=== PATIENT | female | born 1955 | race Caucasian/White ===

== ENCOUNTER → 2016-12-30 | Outpatient (CLI) | payer OTHER ==
[~2016-12-30] MED LIST: AMLO10TA PO; AMLO5TAB2 PO; CALC-196 PO; Docusate Sod/Senna PO; ESTR62CR PV; IRON27TA PO; LEVO75TA4 PO; LISI10TA4 PO; LOVA20TA2 PO; PEG1POW PO; PERCOCET PO; PRIL40CA PO; VITA100T56 PO; VITA50003 PO; VITMTA PO; WARF-18 PO
--- NOTE | 2016-12-30 14:47 | REPMRS ---
Patient History The patient states she has not had a clinical breast exam in over a year. Patient is postmenopausal and is nulliparous. Family history of ovarian cancer in 2 sisters under age 50, unknown cancer in mother at age 51, and unknown cancer in brother at age 60. Benign excisional biopsy of the left breast. Took hormonal contraceptives for 4 years. Taking estrogen for 30 years. Digital Woman Screen Mammo: December 30, 2016 - Exam #: [id number] Bilateral CC and MLO view(s) were taken. Technologist: Kimberlee Donaldson Technologist Prior study comparison: April 27, 2015, digital bilateral screening mammo, performed at [facility]. March 31, 2014, bilateral bilat screen digital mammo, performed at [facility] ([facility]). May 05, 2012, bilateral bilat screen digital mammo, performed at [facility] ([facility]). FINDINGS: There are scattered fibroglandular densities. There has been no change in the appearance of the mammogram from the prior studies. There is a mild amount of scattered fibroglandular density which is fairly symmetric. There is no interval development of dominant mass, architectural distortion, or clustered microcalcification suggestive of malignancy. ASSESSMENT: BI-RADS/ACR category 1 mammogram. Negative. Recommendation Routine screening mammogram in 1 year (for women over age 40). This mammogram was interpreted with the aid of an FDA-approved computer-aided dectection system. Electronically Signed By: Osmani Thorpe MD 12/30/16 [id number]
== END ==
LOC: M WHC 13:21
PROVIDERS: ATTEND Nurse Practitioner Adult Health
DX: Z12.31 Encounter for screening mammogram for malignant neoplasm of breast (principal)

== ENCOUNTER → 2017-05-15 | Outpatient (REF) | payer OTHER ==
[~2017-05-15] MED LIST changes: -IRON27TA PO; +IRON27TA2 PO; +VITA1CAP40 PO; -VITA50003 PO
[2017-05-15 20:24] LABS: BASO % 0.3 % (0.0-1.0); EOS # 0.1 10^3/uL (0.0-0.50); IMMATURE GRANULOCYTE % 0.2 % (0-0); LYMPH # 1.5 10^3/uL (1.5-4.5); LYMPH % 25.4 % (24.0-44.0); MEAN CORPUSCULAR HEMOGLOBIN 24.8 pg (27.0-33.0); MEAN CORPUSCULAR HGB CONC 31.1 g/dl (32.0-36.5); MONO # 0.6 10^3/uL (0.0-0.8); MONO % 9.9 % (0.0-5.0); NEUTROPHILS # 3.7 10^3/uL (1.8-7.7); NEUTROPHILS % 62.2 % (36.0-66.0); PLATELET COUNT, AUTOMATED 201 10^3/uL (150-450); RED CELL DISTRIBUTION WIDTH 15.4 % (11.5-14.5)
[2017-05-15 20:26] LABS: ADD MORPHOLOGY? NO
[2017-05-15 21:03] LABS: ALBUMIN 3.5 GM/DL (3.2-5.2); ALKALINE PHOSPHATASE 141 U/L (45-117); ALT/SGPT 39 U/L (12-78); AMYLASE 38 U/L (25-115); ANION GAP 5 MEQ/L (8-16); AST/SGOT 24 U/L (15-37); BILIRUBIN,TOTAL 0.5 MG/DL (0.2-1.0); BLOOD UREA NITROGEN 13 MG/DL (7-18); CALCIUM LEVEL 8.3 MG/DL (8.8-10.2); CARBON DIOXIDE LEVEL 29 MEQ/L (21-32); CHLORIDE LEVEL 107 MEQ/L (98-107); CREATININE FOR GFR 0.85 MG/DL (0.55-1.02); GLOMERULAR FILTRATION RATE > 60.0 (>45); GLUCOSE, FASTING 87 MG/DL (80-110); POTASSIUM SERUM 3.9 MEQ/L (3.5-5.1); SODIUM LEVEL 141 MEQ/L (136-145)
== END ==
LOC: M LAB REF 16:20
PROVIDERS: ATTEND Nurse Practitioner Adult Health
DX: R10.13 Epigastric pain (principal); R11.0 Nausea

== ENCOUNTER → 2017-07-20 | Outpatient (REF) | payer OTHER | LOC: M LAB REF 11:43 | PROVIDERS: ATTEND Nurse Practitioner Adult Health | DX: R10.84 Generalized abdominal pain (principal); R19.7 Diarrhea, unspecified ==

== ENCOUNTER → 2017-09-29 | Outpatient (REF) | payer OTHER | LOC: M SFHCLERA 14:49 | DX: J02.9 Acute pharyngitis, unspecified (principal); Z20.828 Contact with and (suspected) exposure to other viral communicable diseases ==

== ENCOUNTER → 2017-10-05 | Outpatient (CLI) | payer OTHER | LOC: M LRY 16:09 | DX: R05 Cough (principal) | CPT/HCPCS: 71046 ==

== ENCOUNTER → 2017-12-13 | Outpatient (REF) | payer OTHER | LOC: M SFHCLERA 19:00 | DX: J02.9 Acute pharyngitis, unspecified (principal) ==

== ENCOUNTER → 2017-12-30 | Outpatient (CLI) | payer OTHER | LOC: M WUC 12:17 | DX: R06.02 Shortness of breath (principal) ==

== ENCOUNTER → 2018-01-06 | Outpatient (CLI) | payer OTHER ==
[~2018-01-06] MED LIST changes: -AMLO10TA PO; -AMLO5TAB2 PO; -CALC-196 PO; -Docusate Sod/Senna PO; -ESTR62CR PV; -IRON27TA2 PO; -LEVO75TA4 PO; -LISI10TA4 PO; -LOVA20TA2 PO; +METHACHOLINE KIT (J7674) INH; -PEG1POW PO; -PERCOCET PO; -PRIL40CA PO; -VITA100T56 PO; -VITA1CAP40 PO; -VITMTA PO; -WARF-18 PO
== END ==
LOC: M CARPUL 12:41
DX: R05 Cough (principal)
CPT/HCPCS: J7674

== ENCOUNTER → 2018-01-12 | Outpatient (REF) | payer OTHER | LOC: M LAB REF 12:07 | DX: J02.9 Acute pharyngitis, unspecified (principal) | CPT/HCPCS: 87070 ==

== ENCOUNTER → 2018-02-02 | Outpatient (REF) | payer OTHER | LOC: M SFHCLERA 15:08 | DX: J02.9 Acute pharyngitis, unspecified (principal) ==

== ENCOUNTER → 2018-03-26 | Outpatient (CLI) | payer OTHER | LOC: M LRY 12:50 | DX: M79.671 Pain in right foot (principal); M19.071 Primary osteoarthritis, right ankle and foot | CPT/HCPCS: 73630 ==

== ENCOUNTER → 2018-03-26 | Outpatient (REF) | payer OTHER ==
[2018-03-26 16:38] LABS: BASO % 0.6 % (0.0-1.0); EOS # 0.1 10^3/uL (0.0-0.50); EOS % 1.8 % (0.0-3.0); HEMATOCRIT 37.6 % (36.0-47.0); HEMOGLOBIN 11.9 g/dl (12.0-15.5); IMMATURE GRANULOCYTE % 0.5 % (0-3.0); LYMPH # 1.5 10^3/uL (1.5-4.5); LYMPH % 22.2 % (24.0-44.0); MEAN CORPUSCULAR HEMOGLOBIN 25.5 pg (27.0-33.0); MEAN CORPUSCULAR HGB CONC 31.6 g/dl (32.0-36.5); MEAN CORPUSCULAR VOLUME 80.5 fl (80.0-96.0); MONO # 0.6 10^3/uL (0.0-0.8); MONO % 9.1 % (0.0-5.0); NEUTROPHILS # 4.3 10^3/uL (1.8-7.7); NEUTROPHILS % 65.8 % (36.0-66.0); PLATELET COUNT, AUTOMATED 208 10^3/uL (150-450); RED BLOOD COUNT 4.67 10^6/uL (4.00-5.40); RED CELL DISTRIBUTION WIDTH 15.4 % (11.5-14.5); WHITE BLOOD COUNT 6.6 10^3/uL (4.0-10.0)
[2018-03-26 17:01] LABS: ALBUMIN 3.4 GM/DL (3.2-5.2); ALBUMIN/GLOBULIN RATIO 0.87 (1.00-1.93); ALKALINE PHOSPHATASE 134 U/L (45-117); ALT/SGPT 27 U/L (12-78); ANION GAP 9 MEQ/L (8-16); AST/SGOT 18 U/L (7-37); BILIRUBIN,TOTAL 0.5 MG/DL (0.2-1.0); BLOOD UREA NITROGEN 19 MG/DL (7-18); CALCIUM LEVEL 8.5 MG/DL (8.8-10.2); CARBON DIOXIDE LEVEL 27 MEQ/L (21-32); CHLORIDE LEVEL 107 MEQ/L (98-107); CREATININE FOR GFR 0.92 MG/DL (0.55-1.30); GLOMERULAR FILTRATION RATE > 60.0 (>45); GLUCOSE, FASTING 78 MG/DL (70-100); POTASSIUM SERUM 3.9 MEQ/L (3.5-5.1); SODIUM LEVEL 143 MEQ/L (136-145); TOTAL PROTEIN 7.3 GM/DL (6.4-8.2); URIC ACID 5.6 MG/DL (2.6-6.0)
[2018-03-26 17:28] LABS: ERYTHROCYTE SEDIMENTATION RATE 52 mm/hr (0-30)
== END ==
LOC: M SFHCLERA 12:49
DX: M79.671 Pain in right foot (principal)
CPT/HCPCS: 84550

== ENCOUNTER → 2018-04-08 | Outpatient (REF) | payer OTHER | LOC: M LAB REF 16:30 | DX: R30.0 Dysuria (principal) ==

== ENCOUNTER 2018-05-27 14:41 | Emergency (ER) | payer OTHER ==
[2018-05-27 15:44] LABS: BASO % 0.5 % (0.0-1.0); EOS # 0.1 10^3/uL (0.0-0.50); EOS % 0.9 % (0.0-3.0); HEMATOCRIT 35.2 % (36.0-47.0); HEMOGLOBIN 11.4 g/dl (12.0-15.5); IMMATURE GRANULOCYTE % 0.5 % (0-3.0); LYMPH # 1.3 10^3/uL (1.5-4.5); LYMPH % 19.7 % (24.0-44.0); MEAN CORPUSCULAR HEMOGLOBIN 25.7 pg (27.0-33.0); MEAN CORPUSCULAR HGB CONC 32.4 g/dl (32.0-36.5); MEAN CORPUSCULAR VOLUME 79.3 fl (80.0-96.0); MONO # 0.6 10^3/uL (0.0-0.8); MONO % 9.5 % (0.0-5.0); NEUTROPHILS # 4.4 10^3/uL (1.8-7.7); NEUTROPHILS % 68.9 % (36.0-66.0); PLATELET COUNT, AUTOMATED 210 10^3/uL (150-450); RED BLOOD COUNT 4.44 10^6/uL (4.00-5.40); RED CELL DISTRIBUTION WIDTH 14.4 % (11.5-14.5); WHITE BLOOD COUNT 6.4 10^3/uL (4.0-10.0)
[2018-05-27 16:10] LABS: ALBUMIN 3.4 GM/DL (3.2-5.2); ALKALINE PHOSPHATASE 115 U/L (45-117); ALT/SGPT 22 U/L (12-78); ANION GAP 7 MEQ/L (8-16); AST/SGOT 19 U/L (7-37); BILIRUBIN,DIRECT < 0.1 MG/DL (0.0-0.2); BILIRUBIN,TOTAL 0.4 MG/DL (0.2-1.0); BLOOD UREA NITROGEN 18 MG/DL (7-18); CALCIUM LEVEL 8.8 MG/DL (8.8-10.2); CARBON DIOXIDE LEVEL 27 MEQ/L (21-32); CHLORIDE LEVEL 109 MEQ/L (98-107); CPK CREATINE PHOSPHOKINASE 193 U/L (26-192); CREATININE FOR GFR 0.83 MG/DL (0.55-1.30); GLOMERULAR FILTRATION RATE > 60.0 (>45); GLUCOSE, FASTING 87 MG/DL (70-100); LIPASE 250 U/L (73-393); MAGNESIUM LEVEL 2.1 MG/DL (1.8-2.4); MB/CK RELATIVE INDEX 1.66 (< OR =4); NT-PRO BNP 324 PG/ML (<125); POTASSIUM SERUM 3.8 MEQ/L (3.5-5.1); SODIUM LEVEL 143 MEQ/L (136-145); TOTAL PROTEIN 6.8 GM/DL (6.4-8.2); TROPONIN I < 0.02 NG/ML (< 0.10)
== END 2018-05-27 17:51 | disposition home or self-care (01) ==
LOC: M ED 14:41
DX: R00.2 Palpitations (principal); R94.31 Abnormal electrocardiogram [ECG] [EKG]; I10 Essential (primary) hypertension; E78.5 Hyperlipidemia, unspecified; Z87.891 Personal history of nicotine dependence; Z90.49 Acquired absence of other specified parts of digestive tract; Z98.890 Other specified postprocedural states; Z88.0 Allergy status to penicillin; Z88.8 Allergy status to other drugs, medicaments and biological substances; Z88.5 Allergy status to narcotic agent; Z88.1 Allergy status to other antibiotic agents; Z88.2 Allergy status to sulfonamides
CPT/HCPCS: 71045

== ENCOUNTER 2018-07-27 09:17 | Day surgery (SDC) | payer OTHER ==
[~2018-07-27] VITALS: Ht 165.1 cm; Wt 99.8 kg
[~2018-07-27 09:17] MED LIST changes: +ACETAMINOPHEN 325 MG TAB PO PRN; +AMLO10TA PO; +AMLO5TAB4 PO; +ARNU1INH INH; +CALC-196 PO; +D 50CAP PO; +Docusate Sod/Senna PO; +ESTR62CR PV; +FLON1SPR; +HYDR12CA PO; +IRON27TA2 PO; +LEVO75TA4 PO; +LISI-542 PO; +LISI10TA4 PO; +LOVA20TA2 PO; -METHACHOLINE KIT (J7674) INH; +OMEP20CA3 PO; +PEG1POW PO; +PERCOCET PO; +PRIL40CA PO; +PROAAER10 INH; +VITA100T56 PO; +VITA50005 PO; +VITMTA PO; +WARF-18 PO; +XARE20TA PO
[2018-07-27] MEDS ORDERED: NS 1,000 ML IV ONE (09:45)
[2018-07-27] MEDS ORDERED: TRIMETHOBENZAMIDE 300 MG CAP PO PRN (10:00)
[2018-07-27] MEDS ORDERED: LIDOCAINE 2% INJ 100 MG/5 ML SDV (FOR ANES.) As Ordered ONE (10:24)
[2018-07-27] MEDS ORDERED: PROPOFOL 200 MG/20 ML VIAL As Ordered ONE (10:24)
--- NOTE | 2018-07-27 11:10 | ROOR ---
Patient Name: Yancy Onofre Procedure Date: 07/27/2018 10:21 AM Date of : 1955 Age: 63 Room: [facility] Gender: Female Note Status: Finalized Procedure: Upper GI endoscopy Indications: Iron deficiency anemia secondary to chronic blood loss Providers: Ivan Bar MD Referring MD: GORDON SHUKLA JR, MD Requesting Provider: Medicines: Monitored Anesthesia Care Complications: No immediate complications. Procedure: Pre-Anesthesia Assessment: - Prior to the procedure, a History and Physical was performed, and patient medications and allergies were reviewed. The patient is competent. The risks and benefits of the procedure and the sedation options and risks were discussed with the patient. All questions were answered and informed consent was obtained. Patient identification and proposed procedure were verified by the physician, the nurse and the anesthesiologist in the procedure room. Mental Status Examination: alert and oriented. Airway Examination: normal oropharyngeal airway and neck mobility. Respiratory Examination: clear to auscultation. CV Examination: normal. Prophylactic Antibiotics: The patient does not require prophylactic antibiotics. Prior Anticoagulants: The patient has taken Xarelto (rivaroxaban), last dose was 2 days prior to procedure. ASA Grade Assessment: II - A patient with mild systemic disease. After reviewing the risks and benefits, the patient was deemed in satisfactory condition to undergo the procedure. The anesthesia plan was to use monitored anesthesia care (MAC). Immediately prior to administration of medications, the patient was re-assessed for adequacy to receive sedatives. The heart rate, respiratory rate, oxygen saturations, blood pressure, adequacy of pulmonary ventilation, and response to care were monitored throughout the procedure. The physical status of the patient was re-assessed after the procedure. The Endoscope was introduced through the mouth, and advanced to the second part of duodenum. The upper GI endoscopy was accomplished without difficulty. The patient tolerated the procedure well. Findings: The Z-line was regular and was found 37 cm from the incisors. A single small venous bleb with a localized distribution was found in the proximal esophagus. Diffuse mild inflammation characterized by erythema and granularity was found in the gastric antrum. Biopsies were taken with a cold forceps for histology. Biopsies were taken with a cold forceps for Helicobacter pylori testing. Verification of patient identification for the specimen was done by the physician and nurse using the patient's name, date and medical record number. A few 6 mm sessile polyps with no bleeding and no stigmata of recent bleeding were found in the gastric fundus and in the gastric body. Biopsies were taken with a cold forceps for histology. The duodenal bulb and second portion of the duodenum were normal. Biopsies for histology were taken with a cold forceps for evaluation of celiac disease. Impression: - Z-line regular, 37 cm from the incisors. - A small venous bleb found in the esophagus. No evidence of bleeding. - Gastritis. Biopsied. - A few gastric polyps. Biopsied. - Normal duodenal bulb and second portion of the duodenum. Biopsied. Recommendation: - Patient has a contact number available for emergencies. The signs and symptoms of potential delayed complications were discussed with the patient. Return to normal activities tomorrow. Written discharge instructions were provided to the patient. - Resume previous diet. - Resume Xarelto (rivaroxaban) at prior dose tomorrow. Refer to primary physician for further adjustment of therapy. - Await pathology results. - Based on the biopsy results you will receive a phone call from GI clinic in 2-3 weeks to review the pathology results AND/OR your results will be faxed to your Primary care physician. - Return to primary care physician. Ivan Bar MD Ivan Bar MD 07/27/2018 11:10:23 AM This report has been signed electronically. Number of Addenda: 0 Note Initiated On: 07/27/2018 10:21 AM Estimated Blood Loss: Estimated blood loss was minimal.
--- NOTE | 2018-07-27 11:16 | ROOR ---
Patient Name: Yancy Onofre Procedure Date: 07/27/2018 10:22 AM Date of : 1955 Age: 63 Room: [facility] Gender: Female Note Status: Finalized Procedure: Colonoscopy Indications: Heme positive stool, Iron deficiency anemia secondary to chronic blood loss Providers: Ivan Bar MD Referring MD: GORDON SHUKLA JR, MD Requesting Provider: Medicines: Monitored Anesthesia Care Complications: No immediate complications. Procedure: Pre-Anesthesia Assessment: - Prior to the procedure, a History and Physical was performed, and patient medications and allergies were reviewed. The patient is competent. The risks and benefits of the procedure and the sedation options and risks were discussed with the patient. All questions were answered and informed consent was obtained. Patient identification and proposed procedure were verified by the physician, the nurse and the anesthesiologist in the procedure room. Mental Status Examination: alert and oriented. Airway Examination: normal oropharyngeal airway and neck mobility. Respiratory Examination: clear to auscultation. CV Examination: normal. Prophylactic Antibiotics: The patient does not require prophylactic antibiotics. Prior Anticoagulants: The patient has taken Xarelto (rivaroxaban), last dose was 2 days prior to procedure. ASA Grade Assessment: II - A patient with mild systemic disease. After reviewing the risks and benefits, the patient was deemed in satisfactory condition to undergo the procedure. The anesthesia plan was to use monitored anesthesia care (MAC). Immediately prior to administration of medications, the patient was re-assessed for adequacy to receive sedatives. The heart rate, respiratory rate, oxygen saturations, blood pressure, adequacy of pulmonary ventilation, and response to care were monitored throughout the procedure. The physical status of the patient was re-assessed after the procedure. The Colonoscope was introduced through the anus and advanced to the terminal ileum, with identification of the appendiceal orifice and IC valve. The colonoscopy was performed without difficulty. The patient tolerated the procedure well. The quality of the bowel preparation was good. The ileocecal valve, appendiceal orifice, and rectum were photographed. Scope insertion time was 4 minutes. Scope withdrawal time was 10 minutes. The total duration of the procedure was 14 minutes. Findings: The perianal and digital rectal examinations were normal. The terminal ileum appeared normal. Two sessile polyps were found in the ascending colon. The polyps were 3 to 4 mm in size. These polyps were removed with a cold biopsy forceps. Resection and retrieval were complete. Verification of patient identification for the specimen was done by the physician and nurse using the patient's name, date and medical record number. Estimated blood loss was minimal. A 8 mm polyp was found in the transverse colon. The polyp was sessile. The polyp was removed with a cold snare. Resection and retrieval were complete. Multiple small and large-mouthed diverticula were found from sigmoid to ascending colon. There was no evidence of diverticular bleeding. Non-bleeding external and internal hemorrhoids were found during retroflexion. The hemorrhoids were small. Impression: - The examined portion of the ileum was normal. - Two 3 to 4 mm polyps in the ascending colon, removed with a cold biopsy forceps. Resected and retrieved. - One 8 mm polyp in the transverse colon, removed with a cold snare. Resected and retrieved. - Moderate diverticulosis from sigmoid to ascending colon. There was no evidence of diverticular bleeding. - Non-bleeding external and internal hemorrhoids. Recommendation: - Patient has a contact number available for emergencies. The signs and symptoms of potential delayed complications were discussed with the patient. Return to normal activities tomorrow. Written discharge instructions were provided to the patient. - Resume previous diet. - Continue present medications. - Resume Xarelto (rivaroxaban) at prior dose tomorrow. - Await pathology results. - Repeat colonoscopy in 3 - 5 years for surveillance based on pathology results. - Based on the biopsy results you will receive a phone call from GI clinic in 2-3 weeks to review the pathology results AND/OR your results will be faxed to your Primary care physician. - Return to primary care physician. Ivan Bar MD Ivan Bar MD 07/27/2018 11:16:02 AM This report has been signed electronically. Number of Addenda: 0 Note Initiated On: 07/27/2018 10:22 AM Estimated Blood Loss: Estimated blood loss was minimal.
[2018-07-27 11:30] VITALS: BP 158/82
== END 2018-07-27 11:43 | disposition home or self-care (01) ==
LOC: M OPP 09:17
PROVIDERS: ATTEND Internal Medicine Gastroenterology
DX: R19.5 Other fecal abnormalities (principal); D50.0 Iron deficiency anemia secondary to blood loss (chronic); D12.2 Benign neoplasm of ascending colon; D12.3 Benign neoplasm of transverse colon; K57.30 Diverticulosis of large intestine without perforation or abscess without bleeding; K64.8 Other hemorrhoids; K29.70 Gastritis, unspecified, without bleeding; K31.7 Polyp of stomach and duodenum

== ENCOUNTER → 2018-10-12 | Outpatient (REF) | payer OTHER ==
[~2018-10-12] MED LIST changes: -ACETAMINOPHEN 325 MG TAB PO PRN; -AMLO5TAB4 PO; +AMLO5TAB6 PO
[2018-10-12 18:45] LABS: INFLUENZA A AMPLIFICATION NEGATIVE (NEGATIVE); INFLUENZA B AMPLIFICATION NEGATIVE (NEGATIVE)
== END ==
LOC: M LAB REF 16:40
PROVIDERS: ATTEND Nurse Practitioner Adult Health
DX: R05 Cough (principal); J02.9 Acute pharyngitis, unspecified

== ENCOUNTER → 2018-11-25 | Outpatient (REF) | payer OTHER | LOC: M LAB REF 16:59 | PROVIDERS: ATTEND Nurse Practitioner Adult Health | DX: R10.11 Right upper quadrant pain (principal); R10.13 Epigastric pain ==

== ENCOUNTER → 2018-12-08 | Outpatient (REF) | payer OTHER | LOC: M LAB REF 12:53 | PROVIDERS: ATTEND Nurse Practitioner Adult Health | DX: J06.9 Acute upper respiratory infection, unspecified (principal) ==

== ENCOUNTER → 2018-12-08 | Outpatient (REF) | payer OTHER | LOC: M LAB REF 13:07 | PROVIDERS: ATTEND Nurse Practitioner Adult Health | DX: R10.11 Right upper quadrant pain (principal); R10.13 Epigastric pain ==

== ENCOUNTER → 2018-12-20 | Outpatient (CLI) | payer OTHER ==
[2018-12-20 17:26] LABS: INR 1.46
[2018-12-20 17:27] LABS: PARTIAL THROMBOPLASTIN TIME 42.6 SECONDS (25.4-37.6)
== END ==
LOC: M WUC 13:38
DX: R10.13 Epigastric pain (principal); K83.9 Disease of biliary tract, unspecified; Z79.01 Long term (current) use of anticoagulants; R85.0 Abnormal level of enzymes in specimens from digestive organs and abdominal cavity

== ENCOUNTER → 2019-01-26 | Outpatient (REF) | payer OTHER ==
[2019-01-26 17:19] LABS: APPEARANCE, URINE CLEAR (CLEAR); BACTERIA, URINE AUTO NEGATIVE (NEGATIVE); BILIRUBIN, URINE AUTO NEGATIVE (NEGATIVE); BLOOD, URINE BLOOD NEGATIVE (NEGATIVE); COLOR, URINE YELLOW (YELLOW); GLUCOSE, URINE (UA) AUTO NEGATIVE (NEGATIVE); KETONE, URINE AUTO NEGATIVE (NEGATIVE); LEUKOCYTE ESTERASE, URINE AUTO NEGATIVE (NEGATIVE); NITRITE, URINE AUTO NEGATIVE (NEGATIVE); PROTEIN, URINE AUTO NEGATIVE (NEGATIVE); RBC, URINE AUTO 1 /HPF (0-3); SPECIFIC GRAVITY URINE AUTO 1.019 (1.002-1.035); SQUAMOUS EPITHELIAL CELL UR AU 0 /HPF (0-6); UROBILINOGEN, URINE AUTO 0.2 mg/dL (0.0-2.0); WBC, URINE AUTO 0 /HPF (0-3)
== END ==
LOC: M LAB REF 16:29
PROVIDERS: ATTEND Obstetrics & Gynecology
DX: R31.9 Hematuria, unspecified (principal)

== ENCOUNTER → 2019-02-04 | Outpatient (CLI) | payer OTHER ==
[2019-02-04 20:04] LABS: ETHYL ALCOHOL (ETHANOL) < 0.003 % (0.000-0.010); GAMMA GLUTAMYLTRANSPEPTIDASE 26 U/L (5-55)
[2019-02-08 00:06] LABS: ALPHA 1 ANTITRYPSIN 140 mg/dL (90-200); ANTI-MITOCHONDRIAL ANTIBODY <20.0 Units (0.0-20.0); ANTI-SMOOTH MUSCLE ANTIBODY 7 Units (0-19); ANTINUCLEAR ANTIBODIES DIRECT Negative (Negative); CERULOPLASMIN 33.4 mg/dL (19.0-39.0)
== END ==
LOC: M WUC 16:38
PROVIDERS: ATTEND Nurse Practitioner Family
DX: R85.0 Abnormal level of enzymes in specimens from digestive organs and abdominal cavity (principal)
CPT/HCPCS: 82103; 82390; 82977; 83516; 86038; 86255; G0480

== ENCOUNTER → 2019-03-03 | Outpatient (REF) | payer OTHER ==
[~2019-03-03] MED LIST changes: -OMEP20CA3 PO; +OMEP20CA4 PO
== END ==
LOC: M SFHCLERA 15:44
PROVIDERS: ATTEND Physician Assistant
DX: J02.9 Acute pharyngitis, unspecified (principal)

== ENCOUNTER → 2019-09-30 | Outpatient (REF) | payer OTHER ==
[~2019-09-30] MED LIST changes: +OMEP1CAP73 PO; -OMEP20CA4 PO
[2019-09-30 17:45] LABS: INFLUENZA A AMPLIFICATION NEGATIVE (NEGATIVE); INFLUENZA B AMPLIFICATION NEGATIVE (NEGATIVE)
== END ==
LOC: M LAB REF 16:32
PROVIDERS: ATTEND Registered Nurse
DX: R50.9 Fever, unspecified (principal)

== ENCOUNTER → 2019-10-08 | Outpatient (CLI) | payer OTHER ==
--- NOTE | 2019-10-09 09:01 | REP ---
PA and lateral chest: Comparison is 12/30/2017. There is a faintly visible focal density in the right upper lobe measuring 2.2 cm as an interval change. This could be a lung nodule, subsegmental infiltrate or costochondral calcification. Follow-up CT is recommended for further evaluation. The lung de los santos otherwise clear. Cardiac size is normal. The izabella, mediastinum, skeletal structures are unremarkable. There are orthopedic screws in the right humeral head, unchanged. There are surgical clips in the abdominal right upper quadrant, unchanged. Impression: New faintly visible density in the right upper lobe as described. Follow-up CT is recommended for further evaluation. Electronically Signed by Natanael Zavala MD 10/09/2019 08:53 A
== END ==
LOC: M LRY 17:22
PROVIDERS: ATTEND Nurse Practitioner Family
DX: R05 Cough (principal)

== ENCOUNTER → 2019-10-17 | Outpatient (CLI) | payer OTHER ==
--- NOTE | 2019-10-17 09:56 | REPVR ---
PROCEDURE INFORMATION: Exam: CT Chest Without Contrast Exam date and time: 10/17/2019 8:54 AM Age: 64 years old Clinical indication: Other: Rul abnormalities; Additional info: Rul abnormalities cxr TECHNIQUE: Imaging protocol: Computed tomography of the chest without contrast. 3D rendering: MIP and/or 3D reconstructed images were created by the technologist. Radiation optimization: All CT scans at this facility use at least one of these dose optimization techniques: automated exposure control; mA and/or kV adjustment per patient size (includes targeted exams where dose is matched to clinical indication); or iterative reconstruction. COMPARISON: CR CHEST 2 VIEW 10/08/2019 5:29 PM (report not provided) FINDINGS: Limitations: Evaluation is somewhat limited by lack of IV contrast. Lungs: Minor dependent atelectasis and scattered scarring is present bilaterally. There are small patchy foci of ground-glass opacity in the right upper and left lower lobes, which could be infectious or inflammatory. A 3 mm nodule is present in the left upper lobe (image 201:[id number]). The lungs are otherwise clear. The central airways appear patent. Pleural space: Unremarkable. No pneumothorax. No pleural effusion. Heart: Coronary artery calcifications are noted. Aorta: The thoracic aorta is nonaneurysmal. Atherosclerotic vascular calcifications are noted. Lymph nodes: Subcentimeter short axis mediastinal lymph nodes are present, without gross pathologic mediastinal or hilar lymphadenopathy. Gallbladder and bile ducts: Cholecystectomy clips are present. Bones/joints: Degenerative changes involve the spine and shoulders. A surgical anchor is again present in the right humeral head. Soft tissues: Unremarkable. IMPRESSION: 1. Small patchy foci of ground-glass opacity in the right upper and left lower lobes, could be infectious or inflammatory. Correlate clinically and follow-up. 2. 3 mm left upper lobe nodule. For patients at low risk (minimal or absent history of smoking and of other known risk factors), no routine follow-up is indicated. For patients at high risk (history of smoking or of other known risk factors), consider optional CT at 12 months. (Dustin et al., Fleischner Society, 2017) 3. Coronary artery calcifications. Electronically signed by: Erik Pizano On 10/17/2019 09:55:49 AM
== END ==
LOC: M RAD 08:38
PROVIDERS: ATTEND Nurse Practitioner Adult Health
DX: R91.8 Other nonspecific abnormal finding of lung field (principal)

== ENCOUNTER → 2019-11-09 | Outpatient (REF) | payer OTHER | LOC: M SFHCLERA 14:30 | PROVIDERS: ATTEND Physician Assistant | DX: J02.9 Acute pharyngitis, unspecified (principal) ==

== ENCOUNTER → 2019-12-05 | Outpatient (CLI) | payer OTHER ==
--- NOTE | 2019-12-06 02:18 | REP ---
Clinical: Follow up abnormal findings. Comparison: 10/08/2019. Technique: PA and lateral. Findings: Mediastinum and cardiac silhouette are normal. Chronic age-related interstitial changes noted. No acute consolidation, effusion, or pneumothorax. Faintly noted right upper lobe opacity on prior examination is no longer visible. Skeletal structures demonstrate age-related osteopenia and mild degenerative changes along with evidence for prior right shoulder repair. Impression: Chronic stable age-related changes. Previously noted density in the right upper lobe has resolved. Electronically Signed by Gerhard Ocampo MD 12/06/2019 02:10 A
== END ==
LOC: M WUC 16:25
PROVIDERS: ATTEND Nurse Practitioner Adult Health
DX: R91.8 Other nonspecific abnormal finding of lung field (principal)

== ENCOUNTER → 2020-05-02 | Outpatient (REF) | payer OTHER ==
[~2020-05-02] MED LIST changes: +AMLO1TAB24 PO; -AMLO5TAB6 PO
== END ==
LOC: M LAB REF 12:19
PROVIDERS: ATTEND Nurse Practitioner Adult Health
DX: K86.1 Other chronic pancreatitis (principal)

== ENCOUNTER → 2020-06-12 | Outpatient (REF) | payer OTHER | LOC: M LAB REF 13:45 | PROVIDERS: ATTEND Internal Medicine Endocrinology, Diabetes & Metabolism | DX: E04.1 Nontoxic single thyroid nodule (principal) ==

== ENCOUNTER → 2023-01-16 | Outpatient (CLI) | payer MEDICARE, BC ==
[~2023-01-16] MED LIST changes: -LISI-542 PO; +LISI10TA22 PO; -LISI10TA4 PO; +LISI5TAB11 PO; -PEG1POW PO; +POLY17PO18 PO
== END ==
LOC: M EKG 11:50
PROVIDERS: ATTEND Nurse Practitioner Adult Health
DX: R00.2 Palpitations (principal)

== ENCOUNTER → 2023-04-24 | Outpatient (REF) | payer MEDICARE, BC | LOC: M LAB REF 16:08 | PROVIDERS: ATTEND Nurse Practitioner Family | DX: K86.1 Other chronic pancreatitis (principal); R60.0 Localized edema; I11.9 Hypertensive heart disease without heart failure; I48.0 Paroxysmal atrial fibrillation ==

== ENCOUNTER → 2024-03-03 | Outpatient (REF) | payer MEDICARE | LOC: M LAB REF 17:21 | PROVIDERS: ATTEND Nurse Practitioner Family | DX: R60.9 Edema, unspecified (principal); R06.02 Shortness of breath ==

== ENCOUNTER → 2024-06-07 | Outpatient (REF) | payer MEDICARE, BC, OTHER ==
[2024-06-08 02:10] LABS: C REACTIVE PROTEIN QUANTITATIV 1.4 MG/DL (<1.0)
[2024-06-08 02:12] LABS: RHEUMATOID FACTOR QUANT 11.4 IU/ML (<14)
[2024-06-09 15:32] LABS: CYCLIC CITRULLINATED PEPTIDE < 16 UNITS (<20)
[2024-06-09 15:58] LABS: ANA SCREEN, IFA NEGATIVE (NEGATIVE)
== END ==
LOC: M LAB REF 16:40
PROVIDERS: ATTEND Nurse Practitioner Family
DX: R53.83 Other fatigue (principal)

== ENCOUNTER 2024-10-06 11:52 | Outpatient (RCR) | payer MEDICARE | END 2024-10-14 | LOC: M PT 11:52 | PROVIDERS: ATTEND Physician Assistant | DX: I89.0 Lymphedema, not elsewhere classified (principal) ==

== ENCOUNTER → 2024-11-09 | Outpatient (CLI) | payer MEDICARE | LOC: M CARPUL 14:07 | PROVIDERS: ATTEND Registered Nurse | DX: R06.02 Shortness of breath (principal) ==

== ENCOUNTER 2024-11-11 10:00 | Outpatient (RCR) | payer MEDICARE | END 2024-11-14 | LOC: M PT 10:00 | PROVIDERS: ATTEND Physician Assistant | DX: I89.0 Lymphedema, not elsewhere classified (principal) ==

== ENCOUNTER 2024-11-23 10:45 | Outpatient (RCR) | payer MEDICARE ==
[~2024-11-23 10:45] MED LIST changes: +AMLO-751 PO; -AMLO10TA PO
== END 2024-12-14 ==
LOC: M PT 10:45
PROVIDERS: ATTEND Physician Assistant
DX: I89.0 Lymphedema, not elsewhere classified (principal)

== ENCOUNTER → 2024-12-06 | Outpatient (REF) | payer MEDICARE ==
[~2024-12-06] MED LIST changes: -AMLO-751 PO; +AMLO10TA PO
== END ==
LOC: M LAB REF 17:15
PROVIDERS: ATTEND Nurse Practitioner Family
DX: R10.0 Acute abdomen (principal)

== ENCOUNTER → 2025-03-01 | Outpatient (CLI) | payer MEDICARE ==
[~2025-03-01] MED LIST changes: +AMLO-751 PO; -AMLO10TA PO; +HYDR12.510 PO; -HYDR12CA PO
== END ==
LOC: M EKG 10:19
PROVIDERS: ATTEND Registered Nurse
DX: R00.2 Palpitations (principal); I48.0 Paroxysmal atrial fibrillation

== ENCOUNTER 2025-05-24 10:54 | Outpatient (RCR) | payer MEDICARE | END 2025-06-16 | LOC: M PT 10:54 | PROVIDERS: ATTEND Physician Assistant | DX: I89.0 Lymphedema, not elsewhere classified (principal) ==

== ENCOUNTER → 2025-06-26 | Outpatient (CLI) | payer MEDICARE | LOC: M WHC 13:41 | PROVIDERS: ATTEND Nurse Practitioner Family | DX: E03.9 Hypothyroidism, unspecified (principal); E04.1 Nontoxic single thyroid nodule; R10.31 Right lower quadrant pain; K76.0 Fatty (change of) liver, not elsewhere classified; Z90.49 Acquired absence of other specified parts of digestive tract; K57.90 Diverticulosis of intestine, part unspecified, without perforation or abscess without bleeding | CPT/HCPCS: 74177; 76536; Q9967 ==

== ENCOUNTER → 2025-06-26 | Outpatient (CLI) | payer MEDICARE ==
[~2025-06-26] MED LIST changes: +ISOVUE-370 76% 100 ML VIAL ONE
== END ==
LOC: M PLAIMG 13:39
PROVIDERS: ATTEND Nurse Practitioner Family
DX: R10.31 Right lower quadrant pain (principal); K76.0 Fatty (change of) liver, not elsewhere classified; Z90.49 Acquired absence of other specified parts of digestive tract; K57.90 Diverticulosis of intestine, part unspecified, without perforation or abscess without bleeding